=== PATIENT | female | born 1955 | race Caucasian/White ===

== ENCOUNTER 2023-01-29 19:44 | Emergency (ER) | payer MEDICARE, MEDICAID, SELFPAY ==
[2023-01-29 19:50] VITALS: BP 143/70; PULSE 87; RESP 20; TEMP 36.9; O2SAT 89
--- NOTE | 2023-01-29 19:55 | ED.SKABFB ---
HPI - Skin/Abscess/Foreign Bdy General Chief complaint: Skin/Abscess/Foreign Body Stated complaint: Skin Problem Source: patient and RN notes reviewed Limitations: no limitations History of Present Illness HPI narrative: Patient is a 59 female who presents to the [facility] with complaints rash just below her left breast that extends backwards along her left ribs. Patient states that she has felt feverish today. States that the rash was not there last night. States that the rash is painful. She denies difficulty breathing shortness of breath. Patient wears 4 L oxygen via nasal cannula for her COPD normally. Related Data Home Medications Medication Instructions Recorded Confirmed albuterol sulfate 2.5 mg/3 mL mg 01/29/23 (0.083 %) solution for nebulization amitriptyline 50 mg tablet mg 01/29/23 carvedilol 6.25 mg tablet mg 01/29/23 fluticasone fur. 100 mcg-umeclid inhalation 01/29/23 62.5 mcg-vilant 25 mcg inhalat.powder (Trelegy Ellipta) fluticasone propionate 50 intranasal 01/29/23 mcg/actuation nasal spray,suspension gabapentin 600 mg tablet mg 01/29/23 Allergies Allergy/AdvReac Type Severity Reaction Status Date / Time amoxicillin Allergy Rash Verified 01/29/23 19:55 aspirin Allergy Rash Verified 01/29/23 19:54 Review of Systems Review of Systems: CONSTITUTIONAL: Denies fever, chills, or sweats. EYES: Denies visual changes, redness, or discharge. ENT: Denies otalgia and sore throat CARDIOVASCULAR: Denies chest pain, palpitations, or edema. RESPIRATORY: Denies cough or dyspnea. GASTROINTESTINAL: Denies abdominal pain, nausea, vomiting, or diarrhea. GENITOURINARY: Denies dysuria or hematuria. SKIN: Rash to left ribs. MUSCULOSKELETAL: Denies back pain, joint pain, or myalgia. NEUROLOGIC: Denies headache, numbness, or weakness. Pertinent positives per HPI. PMFSH Comments At the time of my signature, I reviewed and agree with the nursing past medical, surgical, social, and family history. There is no relevant family history pertinent to the patient complaint. Exam Narrative: GENERAL: This is a well-nourished, well-developed patient, in no apparent distress. HEAD: normocephalic, atraumatic. EYES: Sclera clear/white. Vision is grossly intact. EARS: External ears normal. Hearing grossly intact. NOSE: External nose normal with no obvious nasal discharge, nares without redness, no rhinorrhea. THROAT: Mucous membranes moist, posterior pharynx clear. NECK: Neck supple, non-tender without lymphadenopathy, masses or thyromegaly. CARDIOVASCULAR: Regular rate and rhythm without murmurs, gallops, or rubs. RESPIRATORY: Clear to auscultation. Breath sounds equal bilaterally. No wheezes, rales, or rhonchi. GASTROINTESTINAL: Abdomen soft, non-tender, nondistended. Bowel sounds are active. No hepato-splenomegaly, or palpable masses. No guarding. SKIN: Rash consistent with shingles noted under left breast that extends posteriorly along her left ribs. NEURO: awake, alert, and oriented to person, place and time. There were no obvious focal neurologic abnormalities. Course Course Level of Care: Express Care Visit Vital Signs Vital signs: Vital Signs Temperature 98.5 F 01/29/23 19:50 Pulse Rate 87 01/29/23 19:50 Respiratory Rate 20 01/29/23 19:50 Blood Pressure 143/70 H 01/29/23 19:50 Pulse Oximetry 89 L 01/29/23 19:50 Oxygen Delivery High Flow Nasal Cannula 01/29/23 19:50 Oxygen Flow Rate 01/29/23 19:50 Temperature 98.5 F 01/29/23 19:50 Pulse Rate 87 01/29/23 19:50 Respiratory Rate 20 01/29/23 19:50 Blood Pressure 143/70 H 01/29/23 19:50 Pulse Oximetry 89 L 01/29/23 19:50 Oxygen Delivery High Flow Nasal Cannula 01/29/23 19:50 Oxygen Flow Rate 4 01/29/23 19:50 Reviewed MDM - Skin/Abscess/Foreign Bdy MDM Narrative Medical decision making narrative: Take medication as prescribed. Follow-up with primary care physician for recheck in the
== END 2023-01-29 20:05 | disposition home or self-care (01) ==
PROVIDERS: Emergency Provider Nurse Practitioner; PCP Internal Medicine
DX: B02.9 Zoster without complications (principal); I10 Essential (primary) hypertension; J44.9 Chronic obstructive pulmonary disease, unspecified; Z99.81 Dependence on supplemental oxygen
CPT/HCPCS: 99213; G0463

== ENCOUNTER 2024-08-10 16:32 | Outpatient (CLI) | payer MEDICARE, OTHER, SELFPAY ==
--- NOTE | ~2024-08-10 | XR_ITS ---
XR lumbar spine min 4V 08/10/2024 17:02 Indication: Radiculopathy Procedure: 5 views lumbar spine Comparison: No prior studies for comparison. Findings: There are chronic fractures of L1 and L2 with vertebroplasty changes. There is subtle anter olisthesis at T12-L1. There are spinal rods transfixing the lower thoracic spine extending inferiorly to the T12 level. There is moderate multilevel facet hypertrophy. There is disc narrowing at all lev els. There is levoscoliosis of the lumbar spine centered at L1-2. There is an ill-defined left hilar opacity. 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 2: Moderate-severe lumbar spondylosis with levoscoliosis. 3: Ill-defined left hilar opacity. Consider infectious/inflammatory air disease and parenchymal nodul e. Recommend correlation with 2 view chest. Reviewed, dictated and finalized at location B. 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 2: Moderate-severe lumbar spondylosis with levoscoliosis. 3: Ill-defined left hilar opacity. Consider infectious/inflammatory air disease and parenchymal nodule. Recommend correlation with 2 view chest.
--- OUTSIDE RECORDS SUMMARY | 2024-08-10 16:39 | XMS_ITS | Data Portability ---
Author Organization [facility] ASHVINClaus Address [address] [facility] [address] Care Team Providers Care Deployment Manager Name Role Phone JANE PARK Primary Care Provider Assessment No assessment recorded. Plan of Treatment Reminders Order Date Submit Date Provider Last Modified By Organization Details Last Modified Time Details Appointments ANY 30 2024 01:30P [facility] Not available Not available Not available Lab vitamin D, 25-hydr oxy, total, serum 2022 023 [facility], [address] [place] [address], [address], 01/12/2023 08:22:14 lipid panel, serum 2022 023 [facility], [address] [place] [address], [place], [address], 01/12/2023 03:08:15 CMP, serum or plasma 2022 023 [facility], [address] [place] [address] 2, [place], [address], 01/12/2023 03:08:15 TSH, ultra-s ensitiv e, serum 2022 023 [facility], [address] [place] [address] 2, [place], [address], 01/12/2023 08:22:14 HbA1c (hemogl obin A1c), blood 2022 023 [facility], [address] [place] [address] 2, [place], [address], 01/12/2023 08:22:13 CBC w/ auto diff 2022 023 [facility], [address] [place] [address] 2, [place], [address], 01/12/2023 03:08:16 CBC w/ auto diff 2023 024 [facility], [address] [place] [address] 2, [place], [address], 07/21/2024 08:09:26 lipid panel, serum 2023 024 [facility], [address] [place] [address], [place], [address], 07/21/2024 08:09:26 CMP, serum or plasma 2023 024 [facility], [address] [place] [address], [place], [address], 07/21/2024 08:09:26 Referral gastroe nterolo gist referra l 2022 023 RUBINA Miller MD, [address], [facility] [address], [place], [address], 08/05/2023 17:19:07 Procedures None recorde d. Surgeries None recorde d. Imaging US, abdomen , complet e 2022 023 [facility], [address] , [place], [address], 09/20/2023 10:22:02 Medication Orders Coreg 6.25 mg tablet 2022 023 [facility] [id number] In [facility], [place], [address], 01/11/2023 14:35:49 famotid ine 20 mg tablet 2022 023 [facility] [id number] In [facility], [address] [place] [address], [address], 06/21/2023 15:24:31 omepraz ole 20 mg capsule ,delaye d release 2022 023 [facility] [address], [address], 06/21/2023 15:27:05 Zofran 4 mg tablet 2022 023 [facility] [id number] In [facility], [address] [place] [address], [address], 06/21/2023 15:27:04 tizanid ine 4 mg tablet 2023 024 [facility] [id number], [address], 10/14/2023 14:45:01 lovasta tin 40 mg tablet 2023 024 [facility] [id number], [address], 10/14/2023 14:42:31 Patient TargetsNo targets recorded. 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 Gastroesophageal reflux disease without esophagitis Referring Physician: Ramiro Park, Internal Medicine, Encounter Date: 06/21/2023 Results Created Date Observation Date Name Description Value Unit Range Abnormal Flag Note LastModifiedBy Organization Detail LastModifiedTime 01/12/2001/11/2023 LIPID PANEL cholesterol, total 229.6 mg/dL 140.0- 200.0 above high normal Not Available [facility] Department [address] [place] [address], [address], 01/12/2023 03:08:15 01/12/20 23 01/11/2023 LIPID PANEL triglyceride s 108 mg/dL <=150 Not Available [facility] Department [address] [place] [address], [address], 01/12/2023 03:08:15 01/12/20 23 01/11/2023 LIPID PANEL HDL cholesterol 66.7 mg/dL 40.0-1 00.0 Not Available [facility] Department [address] [place] [address], [address], 01/12/2023 03:08:15 01/12/20 23 01/11/2023 LIPID PANEL VLDL cholesterol richi 21.60 mg/dL 5.00-4 0.00 Not Available [facility] Department [address] [place] [address], [address], 01/12/2023 03:08:15 01/12/20 23 01/11/2023 LIPID PANEL LDL chol calc ([facility]) 143.9 mg/dL 0.0-99 .0 above high normal Not Available [facility] Department [address] [place] [address], [address], 01/12/2023 03:08:15 01/12/20 23 01/11/2023 COMP. METAB OLIC PANEL (14) glucose 143 mg/dL 65-99 above high normal ANION GP 17.0 mmol/ L N OSMOL 294.0 mOsM/ L N REFER ENCE RANGE : 275.0 -301. 0 Not Available [facility] Department [address] [place] [address], [address], 01/12/2023 03:08:15 01/12/20 23 01/11/2023 COMP. METAB OLIC PANEL (14) BUN 25 mg/dL 8-26 Not Available [facility] Department [address] [place] [address], [address], 01/12/2023 03:08:15 01/12/20 23 01/11/2023 COMP. METAB OLIC PANEL (14) creatinine 0.51 mg/dL 0.50-1 .40 Not Available [facility] Department [address] [place], [address], 01/12/2023 03:08:15 01/12/20 23 01/11/2023 COMP. METAB OLIC PANEL (14) eGFR 102 mL/mi n/1.7 3 >=60 Not Available [facility] Department [address] [place] [address], [address], 01/12/2023 03:08:15 01/12/20 23 01/11/2023 COMP. METAB OLIC PANEL (14) BUN/creatini ne ratio 49.2 Not Available [facility] Department [address] [place], [address], 01/12/2023 03:08:15 01/12/20 23 01/11/2023 COMP. METAB OLIC PANEL (14) sodium 144.0 mmol/ L 136.0- 144.0 Not Available [facility] Department [address] [place] [address], [address], 01/12/2023 03:08:15 01/12/20 23 01/11/2023 COMP. METAB OLIC PANEL (14) potassium 4.1 mmol/ L 3.5-5. 3 Not Available [facility] Department [address] [place] [address], [address], 01/12/2023 03:08:15 01/12/20 23 01/11/2023 COMP. METAB OLIC PANEL (14) chloride 103 mmol/ l 101-11 1 Not Available [facility] Department [address] [place] [address] [place], [address], 01/12/2023 03:08:15 01/12/20 23 01/11/2023 COMP. METAB OLIC PANEL (14) carbon dioxide, total 28.2 mmol/ L 21.0-3 2.0 Not Available [facility] [address] [place], [address], 01/12/2023 03:08:15 01/12/20 23 01/11/2023 COMP. METAB OLIC PANEL (14) calcium 10.2 mg/dL 8.2-10 .0 above high normal Not Available [facility] Department [address] [place], [address], 01/12/2023 03:08:15 01/12/20 23 01/11/2023 COMP. METAB OLIC PANEL (14) protein, total 6.9 g/dL 6.7-8. 2 Not Available [facility] Department [address] [place], [address], 01/12/2023 03:08:15 01/12/20 23 01/11/2023 COMP. METAB OLIC PANEL (14) albumin 4.7 g/dL 3.5-5. 5 Not Available [facility] Department [address] [place], [address], 01/12/2023 03:08:15 01/12/20 23 01/11/2023 COMP. METAB OLIC PANEL (14) globulin, total 2.2 g/dL 1.5-4. 5 Not Available [facility] Department [address] [place], [address], 01/12/2023 03:08:15 01/12/20 23 01/11/2023 COMP. METAB OLIC PANEL (14) A/G ratio 2.0 Not Available [facility] Department [address] [place], [address], 01/12/2023 03:08:15 01/12/20 23 01/11/2023 COMP. METAB OLIC PANEL (14) bilirubin, total 0.3 mg/dL 0.0-1. 2 Not Available [facility] Department [address] [place], [address], 01/12/2023 03:08:15 01/12/20 23 01/11/2023 COMP. METAB OLIC PANEL (14) alkaline phosphatase 65.1 IU/L 42.0-1 21.0 Not Available [facility] Department [address] [place], [address], 01/12/2023 03:08:15 01/12/20 23 01/11/2023 COMP. METAB OLIC PANEL (14) AST (SGOT) 10.7 U/L 10.0-4 2.0 Not Available [facility] Department [address] [place] [address], [address], 01/12/2023 03:08:15 01/12/20 23 01/11/2023 COMP. METAB OLIC PANEL (14) ALT (SGPT) 10.7 U/L 10.0-6 0.0 Not Available [facility] Department [address] [place] [address], [address], 01/12/2023 03:08:15 01/12/20 23 01/11/2023 CBC WITH DIFFE RENTI AL/PL ATELE T WBC 9.3 K/uL 3.4-10 .8 Not Available [facility] Department [address] [place], [address], 01/12/2023 03:08:16 01/12/20 23 01/11/2023 CBC WITH DIFFE RENTI AL/PL ATELE T RBC 4.0 M/uL 4.2-5. 4 below low normal Not Available [facility] Department [address] [place] [address], [address], 01/12/2023 03:08:16 01/12/20 23 01/11/2023 CBC WITH DIFFE RENTI AL/PL ATELE T hemoglobin 12.6 g/dL 11.5-1 5.5 Not Available [facility] Department [address] [place], [address], 01/12/2023 03:08:16 01/12/20 23 01/11/2023 CBC WITH DIFFE RENTI AL/PL ATELE T hematocrit 40.2 % 36.0-4 8.0 Not Available [facility] [address] [place], [address], 01/12/2023 03:08:16 01/12/20 23 01/11/2023 CBC WITH DIFFE RENTI AL/PL ATELE T MCV 101 fL 80-95 above high normal Not Available [facility] Department [address] [place], [address], 01/12/2023 03:08:16 01/12/2001/11/2023 CBC WITH DIFFE RENTI AL/PL ATELE T MCH 32 pg 27-32 Not Available [facility] Department [address] [place], [address], 01/12/2023 03:08:16 01/12/20 23 01/11/2023 CBC WITH DIFFE RENTI AL/PL ATELE T MCHC 31 g/dL 32-36 below low normal Not Available [facility] Department [address] [place], [address], 01/12/2023 03:08:16 01/12/2001/11/2023 CBC WITH DIFFE RENTI AL/PL ATELE T RDW 12.7 % 11.5-1 4.5 Not Available [facility] Department [address] [place], [address], 01/12/2023 03:08:16 01/12/2001/11/2023 CBC WITH DIFFE RENTI AL/PL ATELE T platelets 110 K/uL 155-37 9 below low normal MPV 12.7 FL 8.9-1 2.7 N Not Available [facility] Department [address] [place], [address], 01/12/2023 03:08:16 01/12/20 23 01/11/2023 CBC WITH DIFFE RENTI AL/PL ATELE T neutrophils 84.6 % 40.0-7 4.0 above high normal Not Available [facility] Department [address] [place], [address], 01/12/2023 03:08:16 01/12/20 23 01/11/2023 CBC WITH DIFFE RENTI AL/PL ATELE T lymphs 10.3 % 14.0-4 6.0 below low normal Not Available [facility] Department [address] [place], [address], 01/12/2023 03:08:16 01/12/20 23 01/11/2023 CBC WITH DIFFE RENTI AL/PL ATELE T monocytes 2.8 % 4.0-12 .0 below low normal Not Available [facility] Department [address] [place], [address], 01/12/2023 03:08:16 01/12/2001/11/2023 CBC WITH DIFFE RENTI AL/PL ATELE T eos 0 % 0-5 Not Available [facility] Department [address] [place], [address], 01/12/2023 03:08:16 01/12/20 23 01/11/2023 CBC WITH DIFFE RENTI AL/PL ATELE T basos 0.1 % 0.0-1. 0 Not Available [facility] Department [address] [place], [address], 01/12/2023 03:08:16 01/12/2001/11/2023 CBC WITH DIFFE RENTI AL/PL ATELE T neutrophils (absolute) 7.8 K/uL 1.4-7. 0 above high normal Not Available [facility] Department [address] [place], [address], 01/12/2023 03:08:16 01/12/20 23 01/11/2023 CBC WITH DIFFE RENTI AL/PL ATELE T lymphs (absolute) 1.0 K/uL 0.7-3. 1 Not Available [facility] Department [address] [place], [address], 01/12/2023 03:08:16 01/12/20 23 01/11/2023 CBC WITH DIFFE RENTI AL/PL ATELE T monocytes(ab solute) 0.3 K/uL 0.1-0. 9 Not Available [facility] Department [address] [place], [address], 01/12/2023 03:08:16 01/12/20 23 01/11/2023 CBC WITH DIFFE RENTI AL/PL ATELE T eos (absolute) 0.0 K/uL 0.0-0. 4 Not Available [facility] Department [address] [place], [address], 01/12/2023 03:08:16 01/12/20 23 01/11/2023 CBC WITH DIFFE RENTI AL/PL ATELE T baso (absolute) 0.0 K/uL 0.0-0. 3 Not Available [facility] Department [address] [place], [address], 01/12/2023 03:08:16 01/12/20 23 01/11/2023 CBC WITH DIFFE RENTI AL/PL ATELE T immature granulocytes 2.2 % Not Available [facility] Department [address] [place], [address], 01/12/2023 03:08:16 01/12/20 23 01/11/2023 CBC WITH DIFFE RENTI AL/PL ATELE T immature grans (abs) 0.2 K/uL Not Available [facility] Department [address] [place], [address], 01/12/2023 03:08:16 01/12/20 23 01/11/2023 CBC WITH DIFFE RENTI AL/PL ATELE T NRBC 0 % Not Available [facility] Department [address] [place], [address], 01/12/2023 03:08:16 01/12/20 23 01/12/2023 HEMOG LOBIN A1C hemoglobin A1C 4.9 % 4.8-5. 6 Predi abete s: 5.7 - 6.4 Diabe sandro: >6.4 Glyce angel contr ol for adult s with diabe sandro: <7.0 Not Available [facility] ([facility]) [address] [place], [address], 01/12/2023 08:22:13 01/12/20 23 01/12/2023 TSH TSH 0.587 uIU/m L 0.450- 4.500 Not Available [facility] ([facility]) [address] [place], [address], 01/12/2023 08:22:13 01/12/20 23 01/12/2023 VITAM IN D, 25-HY DROXY vitamin D, 25-hydroxy 31.4 NG/mL 30.0-1 00.0 Vitam in D defic iency has been defin ed by the Insti tute of Medic ine and an Endoc rine Socie ty pract ice guide line as a level of serum 25-OH vitam in D less than 20 ng/mL (1,2) . The Endoc rine Socie ty went on to furth er defin e vitam in D insuf ficie ncy as a level betwe en 21 and 29 ng/mL (2). 1. IOM (Inst itute of Medic ine). 2009. Dieta ry refer ence intak es for calci um and D. Harley hart [place]: The Natio nal [facility]ade [facility] Press . 2. Donnie miller [place], Jerrod ey [place], [place] off-F errar i SMALL, et al. Evalu ation , treat ment, and preve ntion of vitam in D defic iency : an Endoc rine Socie ty clini richi pract ice guide line. JCEM. 2010; 96(7) :1911 -30. Not Available [facility] ([facility]) [address], [place], [address], 01/12/2023 08:22:14 09/20/19 24 09/16/2023 US, abdom en, compl ete No observ ation record ed. [address] , [place], [address], 09/23/2023 15:03:55 10/22/19 24 10/22/2023 CT, abdom en + pelvi s, w/o contr ast No observ ation record ed. [address] , [place], [address], 10/25/2023 12:23:57 11/04/19 24 11/04/2023 XR, abdom en No observ ation record ed. [facility] ([facility]) [address] [facility], [place], [address], 11/05/2023 12:04:08 07/06/20 24 07/06/2024 XR, pyelo gram No observ ation record ed. [facility] [address] [facility], [place], [address], 07/07/2024 09:02:34 Result Notes None recorded. Problems Name Problem SNOMED Code Status Onset Date Resolution Date Notes Provider Name and Address Organization Details Recorded Time Disorder of bile duct 309824506 Active 2018 CT abd 06/17 -common bile duct dilation -referred to GI for ERCP BRY Weaver 1 12:03:21 Pain of left wrist 114921599810 102 Active 2019 xray -lucency -ordered CT and referred to ortho BRY Weaver 12:03:21 Occult blood detected in feces 46428681 Active 2020 Jane Park MD Attn: Maikelbg castillo,[address] [facility], [place], [address], [place] [facility] 2 14:04:23 Diastasis recti 30060269 Active 2020 Jane Park MD Attn: Maikelbg castillo,[address] [facility], [place], [address], [place] [facility] 2 14:04:23 Urinary incontine nce 318878921 Active 2020 Jane Park MD Attn: Kenia jonathan,[address] [facility], [place], [address], [place] [facility] 2 14:04:23 Elevated blood-pre ssure reading without diagnosis of hypertens ion 884521242 Active 2022 Jane Park MD Attn: Kenia castillo,[address] [facility], [place], [address], [place] [facility] 3 14:17:40 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 Jane Park MD Attn: Kenia castillo,[address] [facility], [place], [address], [place] [facility] 3 12:10:42 Essential hypertens ion 32131596 Active 2022 Jane Park MD Attn: Kenia catsillo,[address] [facility], [place], [address], [place] [facility] 3 15:02:36 Hydroneph rosis 14177576 Active [address] /referred to urologist as well Jane Park MD Attn: Kenia castillo,[address] [facility], [place], [address], [place] [facility] 4 09:31:25 Mammogram declined 782769134 Active 2023 Jane Park MD Attn: Kneia castillo,[address] [facility], [place], [address], [place] - [facility] 4 14:38:57 Hyperlipi demia 12515721 Active Jane Park MD Attn: Kenia castillo,[address] [facility], [place], [address], [facility] - [facility] 2 14:04:23 Chronic back pain 701437030 Active s/p rods/ vertebrop lasty-diony n mx Jane Park MD Attn: Kenia castillo,[address] [facility], [place], [address], [facility] - [facility] 2 14:04:23 Osteoporo sis 08681935 Active Jaen Park MD Attn: Kenia castillo,[address] [place], [address], [facility] - [facility] 2 14:04:23 Chronic obstructi ve pulmonary disease 71976061 Active with restricti ve lung disease -on home oxygen - pulmo-Dr. Abdoulaye Park MD Attn: Kenia castillo,[address] [facility], [place], [address], [facility] - [facility] 2 14:04:23 Mixed anxiety and depressiv e disorder 235743847 Active stopped seeing psych Jane Park MD Attn: Kenia castillo,[address] [facility], [place], [address], [facility] - [facility] 4 14:43:35 Smoker 45717277 Active 2016 already quit smoking -pt is having LDCT with pulmo every year per pt Jane Park MD Attn: Kenia castillo,[address] [place], [address], [facility] - [facility] 2 14:04:23 Problem Notes None recorded. Procedures Surgical History Date Name Laterality Status Provider Name and Address Organization Details Recorded Time 7 Most Recent Mammogram completed Jane Park MD Attn: Accounting,[address] [place], [address], [place] [facility] 03/26/2017 08:56:28 Back Surgery completed Yamilka Cesar [place] - [facility] 12/04/2014 09:56:34 Imaging Results Imaging Date Name Status LastModified by Organiz ation Details LastModified Time 09/16/2023 US, abdomen, complete completed [address] [place], [address], 09/23/2023 15:03:55 10/22/2023 CT, abdomen + pelvis, w/o contrast completed [address] [place], [address], 10/25/2023 12:23:57 11/04/2023 XR, abdomen completed [facility] [address], [place], [address], 11/05/2023 12:04:08 07/06/2024 XR, pyelogram completed [facility] [address], [place], [address], 07/07/2024 09:02:34 Procedure Notes None recorded. Medical Equipment None Reported. Allergies Allergen ID Allergen Name Allergen Category Reaction Reaction Severity Criticality Documentation Date Start Date Code Code System Note Provider Name and Address Organization Details Recorded Time 50484 aspirin medicatio n rash Not available Not available 09/05/2014 1191 RxNorm Adrianne Reyes RN null, [facility] 5 10:28:48 89780 Medicinal product containin g penicilli n and acting as antibacte rial agent (product) medicatio n rash Not available Not available 09/05/2014 91526 05 SNOMED GEMA Singh, [facility] 5 10:28:48 70269 fentanyl medicatio n rash Not available Not available 09/05/2014 4337 RxNorm Adrianne Reyes RN null, [facility] 5 10:28:48 31605 cyclobenz aprine medicatio n rash Not available Not available 09/05/2014 02285 RxNorm Adrianne Reyes RN null, [place] - [facility] 5 10:28:48 36247 ibuprofen medicatio n rash Not available Not available 12/04/2014 5640 RxNorm Yamilka Cesar MA null, [place] - [facility] 5 09:54:13 83693 Amphocin medicatio n rash Not available Not available 12/04/2014 19851 8 RxNorm Yamilka Cesar MA null, [place] - [facility] 5 09:54:13 Medications Name Sig Start Date Stop Date Status Note LastModified by Organization Details LastModified Time quetiapin e 25 mg tablet 05/17 completed Not Available Not Available Not Available clotrimaz ole 10 mg nella 07/10 completed Not Available Not Available Not Available nystatin 100,000 unit/mL oral suspensio n Take 5 mL 4 times a day by oral route for 7 days. 10/04 completed Not Available Not Available Not Available carvedilo l 6.25 mg tablet TAKE 1 TABLET BY MOUTH TWICE A DAY 2023 active Not Available Not Available Not Avai lable prednison e 10 mg tablet 07/02 completed Not Available Not Available Not Available gabapenti n 600 mg tablet TAKE 1 TABLET BY MOUTH FOUR TIMES DAILY active Not Available Not Available No t Available doxycycli ne hyclate 100 mg capsule TAKE 1 CAPSULE BY MOUTH TWICE A DAY 01/11 completed Not Available Not Available Not Available albuterol sulfate 2.5 mg/3 mL (0.083 %) solution for nebulizat ion ONE VIAL USING NEBULIZE R EVERY 4 HOURS active Not Available Not Available No t Available cetirizin e 10 mg tablet TAKE 1 TABLET BY MOUTH EVERY DAY active Not Available Not Available No t Available azithromy chino 250 mg tablet TAKE 2 TABLETS BY MOUTH TODAY, THEN TAKE 1 TABLET DAILY FOR 4 DAYS 01/11 completed Not Available Not Available Not Available tizanidin e 4 mg tablet TAKE 1 TABLET BY MOUTH THREE TIMES A DAY 2023 active Not Available Not Available Not Avai lable benzonata te 200 mg capsule TAKE 1 CAPSULE BY MOUTH THREE TIMES A DAY NEEDED 01/11 completed Not Available Not Available Not Available valacyclo vir 1 gram tablet TAKE 1 TABLET BY MOUTH EVERY 8 HOURS FOR 7 DAYS 04/12 completed Not Available Not Available Not Available hydrocodo ne 5 mg-acetam inophen 325 mg tablet TAKE 1 TABLET BY MOUTH TWICE A DAY 07/02 completed Not Available Not Available Not Available Nicoderm CQ 21 mg/24 hr daily transderm al patch Apply 1 patch every day by transder mal route for 42 days. 05/31 completed Not Available Not Available Not Available ondansetr on HCl 4 mg tablet TAKE 1 TABLET BY MOUTH TWICE A DAY NEEDED 2023 active Not Available Not Available Not Avai lable prednison e 20 mg tablet TAKE 2 TABLETS BY MOUTH FOR 5 DAYS, THEN TAKE 1 TABLET BY MOUTH DAILY FOR 5 DAYS 04/12 completed Not Available Not Available Not Available alendrona te 70 mg tablet TAKE 1 TABLET BY MOUTH ONE TIME PER WEEK-lashell ds f/u 2021 active Not Available Not Available Not Avai lable clonazepa m 0.5 mg tablet psych 04/15 completed pt was tapered and no longer taking now per psychiat rist Not Available Not Available Not Available lovastati n 40 mg tablet TAKE ONE TABLET BY MOUTH ONCE DAILY AT SUPPER active Not Available Not Available No t Available hydroxyzi ne HCl 50 mg tablet 01/02 completed Not Available Not Available Not Available hydrocodo ne 10 mg-acetam inophen 325 mg tablet TAKE 1 TABLET BY MOUTH FOUR TIMES A DAY NEEDED active Not Available Not Available No t Available quetiapin e 100 mg tablet psych 12/17 completed Not Available Not Available Not Available amitripty line 50 mg tablet TAKE 1 TABLET BY MOUTH EVERY DAY AT BEDTIME NEEDED FOR 30 DAYS 06/21 completed not taking Not Available Not Available Not Available triamcino lone acetonide 0.1 % topical cream APPLY A THIN LAYER TO THE AFFECTED AREA(S) BY TOPICAL ROUTE 2 TIMES PER DAY active Not Available Not Available No t Available meloxicam 7.5 mg tablet 07/27 completed Not Available Not Available Not Available famotidin e 20 mg tablet TAKE 1 TABLET BY MOUTH TWICE A DAY 2022 active Not Available Not Available Not Avai lable oxycodone -acetamin ophen 10 mg-325 mg tablet TAKE 1 TABLET BY MOUTH THREE TIMES DAILY NEEDED 04/27 completed Not Available Not Available Not Available doxycycli ne monohydra te 100 mg capsule TAKE 1 CAPSULE BY MOUTH TWICE A DAY DIRECTED FOR 7 DAYS 12/16 completed Not Available Not Available Not Available hydrocodo ne 7.5 mg-acetam inophen 325 mg tablet TAKE 1 TABLET BY MOUTH FOUR TIMES A DAY NEEDED FOR 30 DAYS 01/11 completed Not Available Not Available Not Available pantopraz ole 40 mg tablet,de layed release TAKE 1 TABLET BY MOUTH EVERY DAY active Not Available Not Available No t Available calcipotr iene 0.005 % topical cream 07/10 completed Not Available Not Available Not Available ranitidin e 150 mg tablet TAKE ONE TABLET BY MOUTH TWICE A DAY *NEEDS APPOINTM ENT* 12/17 completed not taking Not Available Not Available Not Available lidocaine 5 % topical patch APPLY ONE PATCH TO SKIN EVERY 12 HOURS NEEDED active Not Available Not Available No t Available divalproe x 125 mg tablet,de layed release TAKE 1 TABLET BY MOUTH TWICE A DAY active Not Available Not Available No t Available gabapenti n 300 mg capsule 10/04 completed Not Available Not Available Not Available omeprazol e 20 mg capsule,d elayed release TAKE 1 CAPSULE BY MOUTH EVERY DAY active Not Available Not Available No t Available morphine ER 15 mg tablet,ex tended release 07/27 completed Not Available Not Available Not Available gabapenti n 100 mg capsule active Not Available Not Available Not Available ergocalci ferol (vitamin D2) 1,250 mcg (50,000 unit) capsule TAKE 1 CAPSULE BY MOUTH ONE TIME EVERY 2 WEEKS 2023 active Not Available Not Available Not Avai lable oxycodone -acetamin ophen 7.5 mg-325 mg tablet TAKE 1 TABLET BY MOUTH EVERY 6 HOURS NEEDED 06/21 completed not taking Not Available Not Available Not Available methylpre dnisolone 4 mg tablets in a dose pack TAKE 6 TABLETS ON DAY 1 DIRECTED ON PACKAGE AND DECREASE BY 1 TAB EACH DAY FOR A TOTAL OF 6 DAYS 01/11 completed Not Available Not Available Not Available albuterol sulfate HFA 90 mcg/actua tion aerosol inhaler TAKE 2 PUFFS BY MOUTH EVERY 4 TO 6 HOURS NEEDED active Not Available Not Available No t Available ketoconaz ole 2 % topical cream 12/17 completed Not Available Not Available Not Available fluticaso ne propionat e 50 mcg/actua tion nasal spray,ruddy pension SPRAY 1 SPRAY INTO EACH NOSTRIL EVERY DAY active Not Available Not Available No t Available loratadin e 10 mg tablet TAKE ONE TABLET BY MOUTH ONCE DAILY 01/02 completed Not Available Not Available Not Available nabumeton e 500 mg tablet 07/27 completed Not Available Not Available Not Available clindamyc in phosphate 1 % topical solution 12/17 completed Not Available Not Available Not Available voriconaz ole 200 mg intraveno us solution 12/17 completed Not Available Not Available Not Available aripipraz ole 10 mg tablet psych 07/23 completed Not Available Not Available Not Available aripipraz ole 5 mg tablet 07/23 completed Not Available Not Available Not Available Spiriva with [employer] r 18 mcg and inhalatio n capsules 05/17 completed Not Available Not Available Not Available nitrofura ntoin monohydra te/macroc rystals 100 mg capsule TAKE 1 CAPSULE BY MOUTH EVERY 12 HOURS FOR 7 DAYS 04/29 completed Not Available Not Available Not Available duloxetin e 60 mg capsule,d elayed release TAKE 1 CAPSULE BY MOUTH EVERY DAY active Not Available Not Available No t Available Gas Relief Extra Strength 125 mg chewable tablet TAKE 1 TABLET (125 MG TOTAL) BY MOUTH 4 (FOUR) TIMES A DAY NEEDED (CRAMPIN G/BLOATI NG/GAS/N AUSEA) active Not Available Not Available No t Available tizanidin e 4 mg capsule 05/17 completed Not Available Not Available Not Available Boostrix Tdap 2.5 Lf unit-8 mcg-5 Lf/0.5 mL intramusc ular syringe 12/17 completed Not Available Not Available Not Available Symbicort 160 mcg-4.5 mcg/actua tion HFA aerosol inhaler 05/17 completed Not Available Not Available Not Available oxycodone 10 mg tablet pain mx active Not Available Not Available Not Available Horizant ER 600 mg tablet,ex tended release 07/27 completed Not Available Not Available Not Available Chantix Starting Month Box 0.5 mg (11)-1 mg (42) tablets in dose pack take 0.5mg every day times 3 days then 0.5mg twice a day times 4 days then 1mg twice a day by mouth 12/17 completed Not Available Not Available Not Available Stiolto Respimat 2.5 mcg-2.5 mcg/actua tion solution for inhalatio n INHALE 2 PUFFS BY MOUTH ONCE A DAY 01/11 completed not using Not Available Not Available Not Available naloxone 4 mg/actuat ion nasal spray 1 SPRAY INTRANAS ALLY ONCE FOR OVERSEDA TION, REPEAT IN 2-3 MINUTES IF NEEDED active Not Available Not Available No t Available Xtampza ER 9 mg capsule sprinkle TAKE 1 CAPSULE BY MOUTH EVERY 12 HOURS 07/02 completed not taking Not Available Not Available Not Available Trintelli x 10 mg tablet TAKE 1 TABLET BY MOUTH EVERY DAY FOR 15 DAYS - MUST SCHEDULE APPOINTM ENT 04/12 completed Not Available Not Available Not Available Trelegy Ellipta 100 mcg-62.5 mcg-25 mcg powder for inhalatio n INHALE 1 PUFF DAILY active Not Available Not Available No t Available Fluzone High-Dose 2019-20 (PF) 180 mcg/0.5 mL intramusc ular syringe 12/17 completed Not Available Not Available Not Available COVID-19 test specimen collectio n DIRECTED 07/02 completed Not Available Not Available Not Available COVID-19 At-Home Test kit USE DIRECTED IN PACKAGE 01/11 completed Not Available Not Available Not Available Vitals Date Recorded Body height Body mass index (BMI) Body weight Heart rate Respiratory rate Body temperature Oxygen saturation Oxygen saturation in Arterial blood by Pulse oximetry Inhaled oxygen flow rate Systolic blood pressure Diastolic blood pressure Provider Name and Address Organization Details Last Updated DateTime 3 139.7 cm 31 kg/m2 69704.8 6 g 106 /min 16 /min 97.1 [degF] 92 % 92 % 4 L/min 157 mm[Hg] 89 mm[Hg] Laura Hanna MA [place] - [facility] 3 14:06:03 Date Recorded Body height Body mass index (BMI) Body weight Heart rate Respiratory rate Body temperature Oxygen saturation Oxygen saturation in Arterial blood by Pulse oximetry Inhaled oxygen flow rate Systolic blood pressure Diastolic blood pressure Provider Name and Address Organization Details Last Updated DateTime 3 139.7 cm 29.5 kg/m2 00679.8 7 g 101 /min 16 /min 97.7 [degF] 91 % 91 % 4 L/min 129 mm[Hg] 83 mm[Hg] Laura Hanna MA [facility] 3 14:53:34 Date Recorded Body height Body mass index (BMI) Body weight Heart rate Respiratory rate Body temperature Oxygen saturation Oxygen saturation in Arterial blood by Pulse oximetry Inhaled oxygen flow rate Systolic blood pressure Diastolic blood pressure Provider Name and Address Organization Details Last Updated DateTime 3 139.7 cm 28.4 kg/m2 43675.6 3 g 90 /min 14 /min 97.7 [degF] 95 % 95 % 4 L/min 123 mm[Hg] 77 mm[Hg] Laura Hanna MA [facility] 3 15:11:02 Date Recorded Body height Body mass index (BMI) Body weight Heart rate Respiratory rate Body temperature Oxygen saturation Oxygen saturation in Arterial blood by Pulse oximetry Systolic blood pressure Diastolic blood pressure Provider Name and Address Organization Details Last Updated DateTime 4 139.7 cm 28.5 kg/m2 60506.1 4 g 82 /min 14 /min 97.8 [degF] 95 % 95 % 105 mm[Hg] 62 mm[Hg] Laura Hanna MA [facility] 4 14:28:47 Date Recorded Body height Body mass index (BMI) Body weight Heart rate Respiratory rate Body temperature Oxygen saturation Oxygen saturation in Arterial blood by Pulse oximetry Inhaled oxygen flow rate Systolic blood pressure Diastolic blood pressure Provider Name and Address Organization Details Last Updated DateTime 4 139.7 cm 25 kg/m2 79034.9 g 95 /min 14 /min 98.4 [degF] 93 % 93 % 4 L/min 104 mm[Hg] 65 mm[Hg] Laura Hanna MA [facility] 4 14:50:57 Social History Question Answer Notes LastModified by Organizat ion Details LastModified Time Tobacco Smoking Status Former Smoker Quit - 11/04/2019 NAYAN Wynn [facility] 12/18/2019 10:59:44 What Is Your Level Of Alcohol Consumption? None Holidays Information not available 12/18/2019 Are You Blind Or Do You Have Difficulty Seeing? Yes Glasses Information not available 07/02/2021 What Is Your Level Of Caffeine Consumption? Moderate Soda Information not available 06/21/2023 How Much Tobacco Do You Chew? None Information not available 07/27/2016 In The 14 Days Before Symptom Onset, Have You Had Close Contact With A Laboratory-confi rmed COVID-19 While That Case Was Ill? No Information not available 12/18/2019 In The 14 Days Before Symptom Onset, Have You Had Close Contact With A Person Who Is Under Investigation For COVID-19 While That Person Was Ill? No Information not available 12/18/2019 Have You Been To An Area Known To Be High Risk For COVID-19? No Information not available 12/18/2019 Are You Currently Employed? No Information not available 03/18/2021 Are You Deaf Or Do You Have Serious Difficulty Hearing? Yes Information not available 07/02/2021 What Type Of Diet Are You Following? REGULAR Information not available 07/27/2016 Which Illicit Or Recreational Drugs Have You Used? Denies Information not available 07/27/2016 Do You Or Have You Ever Used E-cigarettes Or Vape? Former User Of Electronic Cigarettes Stopped 03/2020 Information not available 03/25/2020 What Is The Highest Grade Or Level Of School You Have Completed Or The Highest Degree You Have Received? [id number] Information not available 03/18/2021 What Is Your Occupation? Disabled Information not available 01/04/2017 Are There Any Guns Present In Your Home? No Information not available 05/17/2019 Hard Of Hearing Or Deaf In One Or Both Ears? Yes Hard Of Hearing Information not available 07/23/2020 Legally Blind In One Or Both Eyes? No Information not available 07/23/2020 Marital Status Informatio n not available 07/27/2016 What Was The Date Of Your Most Recent Tobacco Screening? 04/27/2024 Information not available 04/27/2024 Performs Monthly Self-breast Exam? No Information not available 10/01/2020 What Is Your Relationship Status? Information not available 03/18/2021 Do You Use Your Seat Belt Or Car Seat Routinely? Yes Information not available 03/18/2021 Seat Belts Used Routinely Yes Information not available 05/17/2019 Smoke Alarm In Home Yes Information not available 05/17/2019 Do You Have Smoke And Carbon Monoxide Detectors In Your Home? Yes Information not available 03/18/2021 At What Age Did You Start Smoking Tobacco? 21 Information not available 07/27/2016 Do You Or Have You Ever Used Smokeless Tobacco? Never Used Smokeless Tobacco Information not available 05/17/2019 How Much Tobacco Do You Smoke? 1.5 PPD 1 1/2 - 2 Pkgs A Day Information not available 10/04/2017 General Stress Level Medium Information not available 01/02/2019 Do You Feel Stressed (tense, Restless, Nervous, Or Anxious, Or Unable To Sleep At Night)? [id number] Information not available 03/18/2021 Do You Use Any Illicit Or Recreational Drugs? No Medical Marijuana- Stopped 09/2021 Information not available 12/16/2021 Do You Use Sunscreen Routinely? No Information not available 05/17/2019 How Many Years Have You Smoked Tobacco? 40 Information not available 07/27/2016 Do You Or Have You Ever Used Any Other Forms Of Tobacco Or Nicotine? Yes Information not available 03/18/2021 Sex: Female Functional Status Question Answer Note LastModified by Organization D etails LastModified Time Are you able to care for yourself? Yes Information n ot available 06/21/2023 What is your exercise level? None Information not available 03/18/2021 Mental Status None recorded. Family History Nothing Reported. Medical History Condition Response Coronary Artery Disease N High Blood Pressure N Atrial Fibrillation N Kidney or Bladder Problems N Thyroid Problems N GI Problems N Depression Y COPD Y Blood Clots N Skin Problems N Anemia N Heart Attack (DC) N Anxiety Disorder N Diabetes N Muscle, Joint, or Bone Problems Y Acid Reflux (GERD) N Cancer N Stroke N Asthma Y Allergies N High Cholesterol N Hepatitis N Liver Disease N Headaches Y Heart Failure N Osteoporosis Y Gynecological History Statement/Question Response Most Recent Mammogram 03/15/2017 Obstetrics History GPAL:G 0 P 0 0 0 0 Immunizations Vaccine Type Date Status Note Provider Nam e and Address Organization Details Recorded Time Influenza, split virus, quadrivalent, preservative 0 completed Not Available [facility] 05/10/2021 15:05:17 Tdap 0 completed Not Available [facility] 05/10/2021 15:05:17 Tdap 6 completed Not Available [facility] 09/16/2019 02:50:26 Pneumococcal conjugate PCV 13 5 completed Not Available [facility] 05/10/2021 15:05:17 Influenza, split virus, trivalent, preservative 5 completed Not Available [facility] 05/10/2021 15:05:17 COVID-19, mRNA, LNP-S, PF, 100 mcg/0.5mL dose or 50 mcg/0.25mL dose 1 completed Pam Miller MA null, [place] - [facility] 11/22/2020 16:57:33 COVID-19, mRNA, LNP-S, PF, 100 mcg/0.5mL dose or 50 mcg/0.25mL dose 1 completed Hoa Hanna [place], [place] [facility] 01/03/2021 13:31:09 pneumococcal polysaccharide PPV23 1 completed Laura Hanna [place], [place] [facility] 07/02/2021 15:00:08 influenza, unspecified formulation 6 completed Not Available [facility] 05/10/2021 15:05:17 Influenza, split virus, quadrivalent, preservative 7 completed Not Available [facility] 05/10/2021 15:05:17 Past Encounters Encounter ID Performer Location Encounter Start Date Encounter Closed Date Diagnosis/Indication Diagnosis SNOMED-CT Code Diagnosis ICD10 Code [id number] Chikis FRAUSTO (Adult Med) [address] [place] [address] 12/04/2014 09:34:34 12/04/2014 10:45:55 Hyperlipidemia 75032244 Chronic back pain 486589 002 Osteoporosis 76817293 Chronic ob structive pulmonary disease 63413413 Screening for malignant neoplasm of colon 251804673 Mixed anxi ety and depressive disorder 662918775 Screening mammography 24 567922 [id number] Marita Theodore [facility] (Adult Med) [address] [place] [address] 04/08/2015 10:21:29 04/08/2015 11:16:17 Hyperlipidemia 03790486 Osteoporosis 72284390 Screening mammography 24 365282 [id number] Jane Park MD [facility] (Adult Med) [address] [place] [address] 09/23/2015 11:31:41 09/24/2015 10:53:30 Hyperlipidemia 31040903 E78.4 Osteoporosis 71761119 M8 1.8 Screening for malignant neoplasm of colon 551377248 Z12.11 Screening mammography 24 024415 Z12.31 [id number] [facility] [address] [place] [address] 07/27/2016 15:37:03 07/27/2016 16:47:33 Hyperlipidemia 11857567 E78.4 Administra tion of diphtheria, pertussis, and tetanus vaccine 271096837 Z23 Chronic ob structive pulmonary disease 86978027 J44.9 Screening mammography 24 888055 Z12.31 Allergic rhinitis 866575 04 J30.9 [id number] [facility] [address] [place] [address] 01/04/2017 16:31:43 01/06/2017 15:06:17 Hyperlipidemia 97790291 E78.4 Screening for malignant neoplasm of colon 091876546 Z12.11 Osteoporosis 77349870 M8 1.8 Chronic ob structive pulmonary disease 38339271 J44.9 Smoker 39488803 F17.952 [id number] [facility] [address] [place] [address] 05/31/2017 11:19:34 05/31/2017 17:32:46 Hyperlipidemia 62846973 E78.4 Mixed anxi ety and depressive disorder 603142489 F41.8 Chronic back pain 063665 002 G89.29 Osteoporosis 76807979 M8 1.0 Chronic ob structive pulmonary disease 06348404 J44.9 [id number] [facility] [address] [facility] [address] [place] [address] 10/04/2017 14:58:10 10/05/2017 15:22:48 Hyperlipidemia 61360808 E78.4 Chronic back pain 839613 002 G89.29 Mixed anxi ety and depressive disorder 129460765 F41.8 Allergic rhinitis 941436 04 J30.9 [id number] MD Saadia [facility] (Adult Med) [address] [place] [address] 04/14/2018 11:24:08 04/18/2018 12:12:15 Hyperlipidemia 20478945 E78.4 Osteoporosis 54909245 M8 1.0 Chronic ob structive pulmonary disease 48621687 J44.9 Chronic back pain 454313 002 G89.29 Mixed anxi ety and depressive disorder 366185192 F41.8 [id number] MD Darren William (Adult Med) [address] [address] 01/02/2019 16:04:00 01/03/2019 10:46:11 Screening for malignant neoplasm of colon 660649149 Z12.11 Hyperlipidemia 49587999 E78.49 Osteoporosis 31223824 M8 1.0 Chronic ob structive pulmonary disease 90699574 J44.9 Chronic back pain 994246 002 G89.29 Mixed anxi ety and depressive disorder 016929407 F41.8 Gastroesop hageal reflux disease without esophagitis 617351784 K21.9 Smoker 28589109 F17.200 Recurrent sinusitis 1957 51766 J32.9 Screening mammography 24 519152 Z12.31 [id number] MD Darren William (Adult Med) [address] [address] 05/17/2019 14:42:16 05/18/2019 09:23:03 Unintentional weight loss 152721545 R63.4 Screening mammography 24 476778 Z12.31 Screening for malignant neoplasm of colon 300015217 Z12.11 [id number] MD Darren William (Adult Med) [address] [place] [address] 12/18/2019 08:41:30 12/19/2019 14:03:56 Hyperlipidemia 48517318 E78.49 Mixed anxi ety and depressive disorder 681963431 F41.8 Chronic back pain 722147 002 G89.29 Chronic ob structive pulmonary disease 66563673 J44.9 [id number] MD Darren William (Adult Med) [address] [facility] [place] [address] 03/25/2020 07:58:29 03/26/2020 10:01:04 Hyperlipidemia 64992733 E78.49 Chronic back pain 720841 002 G89.29 Mixed anxi ety and depressive disorder 128856417 F41.8 Renewal of prescription 074900644 Z76.0 Chronic ob structive pulmonary disease 94019192 J44.9 [id number] [facility] [address] [place] [address] 07/10/2020 08:06:16 07/11/2020 13:49:23 Renewal of prescription 522681385 Z76.0 Pain of left wrist 67859 82833 40577 M25.066 [id number] [facility] [address] [place] [address] 07/23/2020 08:23:03 07/23/2020 23:03:38 Screening for malignant neoplasm of colon 758208513 Z12.11 Pain of left wrist 17547 25144 46739 M25.532 Decreased hearing 289033 001 H91.93 [id number] [facility] [address] [facility] [place] [address] 10/01/2020 08:50:43 10/02/2020 09:58:33 Hyperlipidemia 52349976 E78.49 Pain of left wrist 24054 25075 56542 M25.532 Chronic back pain 075475 002 G89.29 Mixed anxi ety and depressive disorder 723427388 F41.8 Occult blo od detected in feces 93499465 R19.5 At [facility] ed risk for falls 533920198 Z91.81 [id number] Jammie Bowen LPN [address] [place] [address] 11/22/2020 16:32:17 11/25/2020 14:11:01 Administration of SARS-CoV-2 antigen vaccine 644823305 Z23 [id number] [facility] [address] [place] [address] 12/11/2020 11:52:50 12/12/2020 09:19:25 Pain in upper limb 954793152 M79.536 [id number] Jammie Bowen LPN Rajiv [address] IM [address] [place] [address] 12/20/2020 16:14:04 12/23/2020 16:41:44 Administration of SARS-CoV-2 antigen vaccine 401288395 Z23 [id number] [facility] [address] [facility] [place] [address] 03/18/2021 14:47:08 03/23/2021 23:37:49 Hyperlipidemia 75366809 E78.49 Chronic ob structive pulmonary disease 45652725 J44.9 Chronic back pain 538018 002 M54.16 M48.02 Mixed anxi ety and depressive disorder 442330024 F41.8 Abdominal mass 368545320 R19.06 Renewal of prescription 133924555 Z76.0 Chest pain 69018974 R07. 9 [id number] [facility] [address] [facility] [place] [address] 04/29/2021 14:14:54 04/29/2021 15:32:41 Chronic obstructive pulmonary disease 76122005 J44.9 Osteoporosis 81169449 M8 1.0 Hyperlipidemia 57091430 E78.49 Mixed anxi ety and depressive disorder 354161034 F41.8 [id number] MD Saadia [facility] (Adult Med) [address] [place] [address] 07/02/2021 14:09:17 07/03/2021 08:40:45 Hyperlipidemia 83975328 E78.49 Chronic ob structive pulmonary disease 35193543 J44.9 Chronic back pain 277298 002 M54.16 M48.02 Mixed anxi ety and depressive disorder 061777617 F41.8 Administra tion of pneumococcal vaccine 36903647 Z23 Atopic dermatitis 700904 01 L20.9 Renewal of prescription 685046228 Z76.0 [id number] [facility] [address] [place] [address] 12/16/2021 13:26:25 12/17/2021 09:23:59 Hyperlipidemia 95621976 E78.49 Chronic ob structive pulmonary disease 70783789 J44.9 Mixed anxi ety and depressive disorder 440850166 F41.8 Chronic back pain 984617 002 M54.16 M48.02 Exposure t o SARS-CoV-2 409621538 Z20.693 [id number] [facility] [address] [place] [address] 01/11/2023 13:36:54 01/13/2023 10:39:46 Chronic obstructive pulmonary disease 28247798 J44.9 Hyperlipidemia 22443933 E78.49 Chronic back pain 669374 002 M54.16 M48.02 Mixed anxi ety and depressive disorder 566013308 F41.8 Osteoporosis 43401202 M8 1.0 Essential hypertension 69889161 I10 [id number] MD Saadia William[facility]to (Adult Med) [address] [place] [address] 04/12/2023 14:11:09 04/14/2023 14:51:36 Hyperlipidemia 55870868 E78.49 Chronic ob structive pulmonary disease 65288452 J44.9 Chronic back pain 926864 002 M54.16 M48.02 Mixed anxi ety and depressive disorder 639414425 F41.8 Essential hypertension 13094646 I10 Gastroesop hageal reflux disease without esophagitis 180311076 K21.9 [id number] MD Darren William (Adult Med) [address] [place] [address] 06/21/2023 14:52:49 06/22/2023 13:15:57 Gastroesophageal reflux disease without esophagitis 927239600 K21.9 Epigastric discomfort 11 5120984 R10.13 [id number] MD Darren William (Adult Med) [address] [place] [address] 10/14/2023 14:10:35 10/20/2023 15:01:41 Hyperlipidemia 99655850 E78.49 Chronic ob structive pulmonary disease 91705832 J44.9 Disorder of bile duct 11 0160028 K83.9 Chronic back pain 110747 002 M54.16 M48.02 [id number] MD Darren William (Adult Med) [address] [place] [address] 04/27/2024 14:28:10 05/02/2024 14:34:54 Chronic obstructive pulmonary disease 52766675 J44.9 Hyperlipidemia 49498830 E78.49 Essential hypertension 76997611 I10 Health Concerns Section Related Observation LastModified by Organization Detai ls LastModified Time None Recorded Concern Status LastModified by Organization Details LastModified Time None Recorded Advance Directives Directive None Recorded Payers Encounter Date Sequence Insurance Name Policy Number Policy Fragoso Covered Member ID Fragoso Member ID Guarantor Name 01/11/2023 2 [place]ARE OR MEDICARE REPLACEMENT PRIMARY) Lesli Sheehan [id number] [employer] 01/11/2023 1 [facility] (MEDICARE REPLACEMENT/AD VANTAGE - HMO) [id number] [employer] J Sheehan [id number] [employer] 04/12/2023 2 [place]ARE OR MEDICARE REPLACEMENT PRIMARY) Lesli Sheehan [id number] [employer] 04/12/2023 1 [facility] (MEDICARE REPLACEMENT/AD VANTAGE - HMO) [id number] [employer] J Sheehan [id number] [employer] 06/21/2023 2 [place]ARE OR MEDICARE REPLACEMENT PRIMARY) [employer] Sheehan [id number] [employer] 06/21/2023 1 [facility] (MEDICARE REPLACEMENT/AD VANTAGE - HMO) [id number] [employer] J Sheehan [id number] Lesli Sheehan 10/14/2023 2 [place] WHEN [place]ARE OR MEDICARE REPLACEMENT PRIMARY) [employer] [id number] Lesli Sheehan 10/14/2023 1 [facility] (MEDICARE REPLACEMENT/AD VANTAGE - HMO) [id number] Lesli George Sheehan [id number] Lesli Sheehan 04/27/2024 1 [facility] (MEDICARE REPLACEMENT/AD VANTAGE - HMO) [id number] Lesli J Aguila [id number] Lesli Sheehan 04/27/2024 2 [facility] - DOS ON OR AFTER 21 (MEDICAID REPLACEMENT - HMO) Lesli Sheehan [id number] Lesli Sheehan Notes Date Note Type Note Provider Name and Address Organization Details Recorded Time 3 text/htm l COPDReported bypatient.Onset/Timing:chron ic: slowly much worse (and has yellow mucus) Severity:severe Quality:symptoms worse during the day Context:cigarette smoking (ex-smoker) Aggravating factors:worse with cigarette smoking Associated Symptoms:dyspnea during exertion;decrease in exercise capacity;fatigue;cough;wheez ingNotes:pt sees pulmo and also on oxygen - going for tests per ptHyperlipidemiaReported bypatient.Duration:chronic Compliance:noncompliant;does not exercise Complications:no coronary artery disease Risk Factors:smoking(ex-smoker) pt sees pain mx for chronic back pain and also sees psychiatrist for depression/anxiety , taking meds as prescribed . pt sees pulmo for her copd, had LDCT . Jane Park MD Attn: Accounting,[address] [place] [address], [id number], [place] - [facility] 01/12/2023 09:34:31 3 text/htm l COPDReported bypatient.Onset/Timing:chron ic: slowly much worse (and has yellow mucus) Severity:severe Quality:symptoms worse during the day Context:cigarette smoking (ex-smoker) Aggravating factors:worse with cigarette smoking Associated Symptoms:dyspnea during exertion;decrease in exercise capacity;fatigue;cough;wheez ingNotes:pt sees pulmo and also on oxygen - going for tests per ptHyperlipidemiaReported bypatient.Duration:chronic Compliance:noncompliant;does not exercise Complications:no coronary artery disease Risk Factors:smoking(ex-smoker) pt sees pain mx for chronic back pain and also sees psychiatrist for depression/anxiety , taking meds as prescribed . pt sees pulmo for her copd, had LDCT . Jane Park MD Attn: Accounting,[address] [facility], [place], [address], [facility] - [facility] 04/12/2023 15:09:10 3 text/htm l NauseaReported bypatient.Locationepigastric Quality:pressure Durationpresent for 1 week Contextno drug/alcohol abuse Associated Symptoms:abdominal pain(epigastric and nausea);heartburn;fatigueNot es:pt denied any change in bowel or urinary habit Jane Park MD Attn: Accounting,[address] [facility], [place], [address], [facility] 06/21/2023 15:35:27 4 text/htm l COPDReported bypatient.Onset/Timing:chron ic: slowly much worse (and has yellow mucus) Severity:severe Quality:symptoms worse during the day Context:cigarette smoking (ex-smoker) Aggravating factors:worse with cigarette smoking Associated Symptoms:dyspnea during exertion;decrease in exercise capacity;fatigue;cough;wheez ingNotes:pt sees pulmo and also on oxygen - going for tests per ptHyperlipidemiaReported bypatient.Duration:chronic Compliance:noncompliant;does not exercise Complications:no coronary artery disease Risk Factors:smoking(ex-smoker) pt sees pain mx for chronic back pain and pt stopped seeing psychiatrist for depression/anxiety -pt said she is doing fine without meds . pt sees pulmo for her copd, had LDCT . pt is also getting evaluated for Nausea and GI upset Jane Park MD Attn: Accounting,[address] [facility], [place], [address], [place] - [facility] 10/14/2023 15:37:36 4 text/htm l COPDReported bypatient.Onset/Timing:chron ic: slowly much worse (and has yellow mucus) Severity:severe Quality:symptoms worse during the day Context:cigarette smoking (ex-smoker) Aggravating factors:worse with cigarette smoking Associated Symptoms:dyspnea during exertion;decrease in exercise capacity;fatigue;cough;wheez ingNotes:pt sees pulmo and also on oxygen - going for tests per ptHyperlipidemiaReported bypatient.Duration:chronic Compliance:noncompliant;does not exercise Complications:no coronary artery disease Risk Factors:smoking(ex-smoker) pt sees pain mx for chronic back pain and pt stopped seeing psychiatrist for depression/anxiety -pt said she is doing fine without meds . pt sees pulmo for her copd, had LDCT . pt is also getting evaluated for Nausea and GI upset Jane Park MD Attn: Accounting,[address] [place], [address], [facility] - [facility] 04/27/2024 15:27:35 OBGyn Episode No OBEpisode recorded.
== END 2024-08-10 16:33 | disposition home or self-care (01) ==
PROVIDERS: PCP Nurse Practitioner Family; Visit Provider Nurse Practitioner Family
DX: S32.019A Unspecified fracture of first lumbar vertebra, initial encounter for closed fracture (principal); S32.029A Unspecified fracture of second lumbar vertebra, initial encounter for closed fracture; X58.XXXA Exposure to other specified factors, initial encounter; M47.816 Spondylosis without myelopathy or radiculopathy, lumbar region; M41.86 Other forms of scoliosis, lumbar region; R91.8 Other nonspecific abnormal finding of lung field; Z98.890 Other specified postprocedural states
CPT/HCPCS: 72110